=== PATIENT | male | born 1960 | race Asian ===

== ENCOUNTER 2023-05-06 08:45 | Outpatient (CLI) | payer OTHER ==
[2023-05-06 11:45] LABS: BASOPHILS # (AUTO) 0.1 10^3/uL (0.0-0.1); BASOPHILS % (AUTO) 0.8 %; EOSINOPHILS # (AUTO) 0.2 10^3/uL (0.0-0.7); EOSINOPHILS % (AUTO) 3.5 %; HCT - HEMATOCRIT 47.6 % (42.0-52.0); HGB - HEMOGLOBIN 15.7 g/dL (14.0-18.0); LYMPHOCYTES # (AUTO) 1.9 10^3/uL (1.5-3.5); LYMPHOCYTES % (AUTO) 29.2 %; MEAN CORPUSCULAR HEMOGLOBIN 30.5 pg (27.0-31.0); MEAN CORPUSCULAR VOLUME 92.4 fL (80.0-94.0); MEAN PLATELET VOLUME 11.5 fL (7.4-11.4); MONOCYTES # (AUTO) 0.7 10^3/uL (0.0-1.0); MONOCYTES % (AUTO) 10.1 %; NEUTROPHILS # (AUTO) 3.7 10^3/uL (1.5-6.6); NEUTROPHILS % (AUTO) 55.8 %; PLT - PLATELET COUNT 239 10^3/uL (130-450); RED BLOOD COUNT 5.15 10^6/uL (4.70-6.10); RED CELL DISTRIBUTION WIDTH 12.8 % (12.0-15.0); WHITE BLOOD COUNT 6.5 x10^3/uL (4.8-10.8)
[2023-05-06 12:14] LABS: ALBUMIN 4.6 g/dL (3.2-5.5); ALBUMIN/GLOBULIN RATIO 1.6 (1.0-2.2); BILIRUBIN,TOTAL 0.7 mg/dL (0.2-1.0); CALCIUM 9.8 mg/dL (8.5-10.3); CREATININE 0.8 mg/dL (0.6-1.3); POTASSIUM 3.8 mmol/L (3.5-4.5); TOTAL PROTEIN 7.4 g/dL (6.4-8.9)
== END 2023-05-06 09:00 | disposition home or self-care (01) ==
LOC: LAB.N 08:45
PROVIDERS: ATTEND Physician Assistant Medical
DX: R42 Dizziness and giddiness (principal)
CPT/HCPCS: 36415; 80053; 82607; 82746; 85025

== ENCOUNTER 2023-07-13 13:15 | Outpatient (CLI) | payer OTHER ==
--- NOTE | 2023-07-13 16:34 | XRAY Report ---
PROCEDURE: Shoulder 2+V RT INDICATIONS: STRAIN OF UNSPECIFIED MUSCLE, FASCIA, AND TENDON OF RT SHOULDER TECHNIQUE: 3 views of the shoulder were acquired. COMPARISON: None. FINDINGS: Bones: No fractures or dislocations. Mild glenohumeral joint space loss. There is undersurface spurr ing of the lateral acromion and mild enthesopathy at the rotator cuff insertion on the humeral head. No suspicious bony lesions. Visualized ribs appear intact. Soft tissues: No suspicious soft tissue calcifications. The visualized lungs are within normal limi ts. IMPRESSION: 1. Undersurface spurring of the lateral acromion may predispose to rotator cuff pathology. 2. Mild glenohumeral joint arthritis without significant spurring. Reviewed by: Melissa Velasquez MD on 07/13/2023 4:33 PM PST Approved by: Melissa Velasquez MD on 07/13/2023 4:33 PM PST Station ID: [id number]
== END 2023-07-13 13:30 | disposition home or self-care (01) ==
LOC: DI.N 13:15
PROVIDERS: ATTEND Physician Assistant Medical
DX: M19.011 Primary osteoarthritis, right shoulder (principal)

== ENCOUNTER 2023-07-14 13:35 | Outpatient (CLI) | payer OTHER ==
[~2023-07-14 13:35] MED LIST: GADOTERATE MEGLUMINE 10 MMOL/20 ML VIAL ONE
--- NOTE | 2023-07-14 18:09 | MRI Report ---
PROCEDURE: MRI brain with and without contrast INDICATIONS: DIZZINESS TECHNIQUE: Multiplanar multisequential MR images of the brain were obtained before and after intrave nous contrast administration. COMPARISON: None. FINDINGS: CSF spaces: Basal cisterns are patent. No extra-axial fluid collections. Ventricles are normal in size and shape. Brain: No midline shift. No intracranial bleeds or masses. No abnormal intracranial enhancement. The brainstem appears normal. Diffusion-weighted images demonstrate no acute infarct. Normal intrav ascular flow voids are present. Skull and face: Calvarial marrow is normal in signal. Orbits appear normal. Sinuses: Sinuses and mastoids appear clear. IMPRESSION: Normal MRI of the brain with and without contrast Reviewed by: Kenji Santos MD on 07/14/2023 5:07 PM [facility] Approved by: Kenji Santos MD on 07/14/2023 5:07 PM [facility] Station ID: [id number]
[2023-07-15] MEDS: GADOTERATE MEGLUMINE 10 MMOL/20 ML VIAL IVP ONE ×2 (09:36)
== END 2023-07-14 13:36 | disposition home or self-care (01) ==
LOC: DI 13:35
DX: R42 Dizziness and giddiness (principal)
CPT/HCPCS: 70553; A9575

== ENCOUNTER 2023-08-20 08:00 | Outpatient (CLI) | payer OTHER ==
--- NOTE | 2023-08-20 19:29 | XRAY Report ---
PROCEDURE: Shoulder 1 View RT INDICATIONS: RIGHT SHOULDER PAIN, AXIAL VIEW ONLY TECHNIQUE: Single axial view COMPARISON: None FINDINGS: Bones: No fractures or dislocations. No suspicious bony lesions. Visualized ribs appear intact. Soft tissues: No suspicious soft tissue calcifications. IMPRESSION: Unremarkable shoulder axial view. No dislocation. Reviewed by: Kenji Santos MD on 08/20/2023 6:27 PM [place] Approved by: Kenji Santos MD on 08/20/2023 6:27 PM [place] Station ID: [id number]
== END 2023-08-20 23:59 | disposition home or self-care (01) ==
LOC: DI.WOS 08:00
PROVIDERS: ATTEND Physician Assistant Surgical
DX: M75.41 Impingement syndrome of right shoulder (principal)